=== PATIENT | female | born 1975 | race Caucasian/White ===

== ENCOUNTER 2016-07-21 19:29 | Emergency (ER) | payer OTHER | END 2016-07-21 21:46 | disposition home or self-care (01) | DX: M25.531 Pain in right wrist (principal); W01.0XXA Fall on same level from slipping, tripping and stumbling without subsequent striking against object, initial encounter; Z86.718 Personal history of other venous thrombosis and embolism; Z79.01 Long term (current) use of anticoagulants ==

== ENCOUNTER 2017-07-15 21:03 | Emergency (ER) | payer OTHER ==
--- NOTE | 2017-07-16 00:27 | ED Physician Documentation ---
PD HPI DYSPNEA - Stated complaint Stated Complaint: DIFFICULTY BREATHING - Chief complaint Chief Complaint: Resp - History obtained from History obtained from: Patient - History of Present Illness Timing - onset: How many days ago (4-5) Timing - duration: Days Timing - details: Gradual onset, Waxing and waning Pain level max: 0 Pain level now: 0 Improved by: Rest Worsened by: Exertion, Coughing Associated symptoms: Fever (Tmax 103), Cough, Wheezing. 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 - Present Medications Home Medications: Ambulatory Orders Medication Instructions Recorded Confirmed Albuterol Sulfate [Proventil Hfa 1 - 2 puffs INH Q4H PRN #1 inhaler 07/16/17 Inhaler] Benzonatate [Tessalon Perle] 100 mg PO Q6HR PRN #20 capsule 07/16/17 predniSONE [Prednisone] 40 mg PO DAILY 3 Days #6 tablet 07/16/17 - Allergies Allergies/Adverse Reactions: Allergies Allergy/AdvReac Type Severity Reaction Status Date / Time coconut Allergy Anaphylaxis Verified 07/21/16 19:36 codeine AdvReac Intermediate Nausea Verified 07/21/16 19:36 - Social History Does the pt smoke?: No Smoking Status: Never smoker Does the pt drink ETOH?: No Does the pt have substance abuse?: No - Immunizations Immunizations are current?: Yes - POLST Patient has POLST: No PD ED PE NORMAL - Vitals Vital signs reviewed: Yes - General General: Alert and oriented X 3, No acute distress, Well developed/nourished - HEENT HEENT: Moist mucous membranes - Neck Neck: Supple, no meningeal sign - Cardiac Cardiac: RRR, No murmur - Respiratory Respiratory: No respiratory distress - Abdomen Abdomen: Soft, Non tender PD ED PE EXPANDED - Respiratory Respiratory: Wheezing, Decreased breath sounds Results - Vitals Vitals: Oxygen O2 Source Room air - Rads (name of study) chest xray Radiology: Prelim report reviewed, See rad report PD MEDICAL DECISION MAKING - ED course Complexity details: reviewed results, re-evaluated patient, considered differential, d/w patient ED course: improved after duoneb followed by albuterol. also given prednisone in ED and rx for same Departure - Departure Disposition: 01 Home, Self Care Clinical Impression: Bronchitis with bronchospasm Condition: Good Instructions: ED Bronchitis Asthmatic Prescriptions: Benzonatate [Tessalon Perle] 100 mg PO Q6HR PRN #20 capsule PRN Reason: Cough Albuterol Sulfate [Proventil Hfa Inhaler] 1 - 2 puffs INH Q4H PRN #1 inhaler PRN Reason: Shortness Of Air/Wheezing predniSONE [Prednisone] 40 mg PO DAILY 3 Days #6 tablet Forms: Activity restrictions Discharge Date/Time: 07/16/17 04:17
[2017-07-16] MEDS ORDERED: IPRATROPIUM/ALBUTEROL 3 ML NEB INH STA (00:39)
--- NOTE | 2017-07-16 01:06 | XRAY Report ---
EXAM: CHEST RADIOGRAPHY EXAM DATE: 07/16/2017 01:00 AM. CLINICAL HISTORY: Dyspnea, cough. COMPARISON: None. TECHNIQUE: 2 views. FINDINGS: Lungs/Pleura: No alveolar consolidation or pleural effusion seen. Bronchial wall thickening. No pneum othorax. Mediastinum: Heart and mediastinal contours are unremarkable. Other: None. IMPRESSION: 1. No focal consolidation seen. 2. Bronchial wall thickening. This can be seen with bronchitis or reactive airways disease. [facility] Referring Provider Line: [phone] SITE ID: [id number]
--- NOTE | 2017-07-16 01:06 | XRAY Preliminary Report ---
Exam: XR CHEST 2 VIEW X-RAY IMPRESSION: 1. No focal consolidation seen. 2. Bronchial wall thickening. This can be seen with bronchitis or reactive airways disease. [facility] SITE ID: [id number]
[2017-07-16] MEDS ORDERED: ALBUTEROL NEB 2.5 MG/3 ML INH STA (03:33)
[2017-07-16] MEDS ORDERED: BENZONATATE 100 MG CAPSULE PO STA (03:34)
[2017-07-16] MEDS ORDERED: predniSONE 20 MG TABLET PO STA (03:55)
[2017-07-16 04:18] VITALS: BP 127/104
== END 2017-07-16 04:17 | disposition home or self-care (01) ==
LOC: ED 21:03
DX: J40 Bronchitis, not specified as acute or chronic (principal)
CPT/HCPCS: 71046; 94640; 99283; A9270; J7512; J7613; J7620

== ENCOUNTER 2017-07-18 19:58 | Emergency (ER) | payer OTHER ==
--- NOTE | 2017-07-18 21:00 | ED Physician Documentation ---
PD HPI DYSPNEA - Stated complaint Stated Complaint: DIFFICULTY BREATHING/COUGH - Chief complaint Chief Complaint: Resp - History obtained from History obtained from: Patient - History of Present Illness Timing - onset: How many days ago (7-8) Timing - details: Gradual onset, Waxing and waning Pain level now: 3 Recently seen: Emergency Dept - Additional information Additional information: T+R 3 days ago (from this ED by me) for similar symptoms, which, at that time, had been going on for 4-5 days. She returns due to ongoing dyspnea and cough. She was prescribed prednisone, albuterol MDI, and benzonatate. She then followed -up at [facility] and was to get rx for an antibiotic (does not know which one), a second inhaler (by her description of how she was instructed to use that one and the albuterol I had prescribed, it sounds like either ipratropium/albuterol or else atrovent alone), and at least one other medication (she says it is something to numb her throat; she denies sore throat to me, but says it constantly is irritated, triggering cough and keeping her from sleeping). Unfortunately, when she went to [place] supervisor her prescriptions, the pharmacy had closed early due to inclement weather, was not due to open until Friday, and thus the prescriptions were unable to be transferred to another pharmacy. 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 - Present Medications Home Medications: Ambulatory Orders Medication Instructions Recorded Confirmed Albuterol Sulfate [Proventil Hfa 1 - 2 puffs INH Q4H PRN #1 inhaler 07/16/17 Inhaler] Benzonatate [Tessalon Perle] 100 mg PO Q6HR PRN #20 capsule 07/16/17 predniSONE [Prednisone] 40 mg PO DAILY 3 Days #6 tablet 07/16/17 Azithromycin [Zithromax] 250 mg PO DAILY #4 tablet 07/18/17 Guaifenesin/Hydrocodone [Flowtuss 5 ml PO BID PRN #60 solution 07/18/17 2.5-200 mg/5 ml Soln] Ipratropium/Albuterol [Combivent 1 puffs IH Q6HR PRN #1 aer.w.adap 07/18/17 Respimat] - Allergies Allergies/Adverse Reactions: Allergies Allergy/AdvReac Type Severity Reaction Status Date / Time coconut Allergy Anaphylaxis Verified 07/21/16 19:36 codeine AdvReac Intermediate Nausea Verified 07/21/16 19:36 - Social History Does the pt smoke?: No Smoking Status: Never smoker Does the pt drink ETOH?: No Does the pt have substance abuse?: No - Immunizations Immunizations are current?: Yes - POLST Patient has POLST: No PD ED PE NORMAL - Vitals Vital signs reviewed: Yes - General General: Alert and oriented X 3, No acute distress, Well developed/nourished - HEENT HEENT: Ears normal, Moist mucous membranes, Pharynx benign - Neck Neck: Supple, no meningeal sign - Cardiac Cardiac: RRR, No murmur - Respiratory Respiratory: No respiratory distress - Abdomen Abdomen: Soft, Non tender - Derm Derm: Normal color, Warm and dry PD ED PE EXPANDED - Respiratory Respiratory: Wheezing (end-expiratory wheezing bilaterally but good air flow) Results - Vitals Vitals: Oxygen O2 Source Room air PD MEDICAL DECISION MAKING - ED course Complexity details: reviewed results, re-evaluated patient, considered differential, d/w patient ED course: After duoneb and xopenex in ED, patient's reevaluation of lungs (auscultation) reveals trace end-expiratory wheezing with good air flow. Given zithromax 500mg and rx, as well as rx for combivent, and rx for flowtuss (allergic to codeine). Departure - Departure Disposition: 01 Home, Self Care Clinical Impression: Bronchitis with bronchospasm Condition: Good Instructions: ED Upper Resp Infec Abx Tx Follow-Up: JAY AYALA DO [Primary Care Provider] - Prescriptions: Ipratropium/Albuterol [Combivent Respimat] 1 puffs IH Q6HR PRN #1 aer.w.adap PRN Reason: Dyspnea Azithromycin [Zithromax] 250 mg PO DAILY #4 tablet Guaifenesin/Hydrocodone [Flowtuss 2.5-200 mg/5 ml Soln] 5 ml PO BID PRN #60 solution PRN Reason: Cough Discharge Date/Time: 07/18/17 23:25
[2017-07-18] MEDS ORDERED: IPRATROPIUM/ALBUTEROL 3 ML NEB INH STA (21:19)
[2017-07-18] MEDS ORDERED: HYDROcod/ACETAM 5/325 MG TABLET PO STA ×2 (21:19→22:45)
[2017-07-18] MEDS ORDERED: LEVALBUTEROL 1.25 MG/3 ML NEB INH STA (22:45)
[2017-07-18] MEDS ORDERED: AZITHROMYCIN 250 MG TABLET PO STA (22:46)
[2017-07-18 22:54] VITALS: BP 149/106
== END 2017-07-18 23:25 | disposition home or self-care (01) ==
LOC: ED 19:58
DX: J20.9 Acute bronchitis, unspecified (principal)
CPT/HCPCS: 94640; 99283; 99284; A9270; J7620

== ENCOUNTER 2019-07-07 17:15 | Emergency (ER) | payer OTHER ==
[2019-07-07 17:52] LABS: BASOPHILS % (AUTO) 0.2 %; EOSINOPHILS % (AUTO) 0.4 %; LYMPHOCYTES # (AUTO) 1.4 10^3/uL (1.5-3.5); LYMPHOCYTES % (AUTO) 12.8 %; MEAN CORPUSCULAR HEMOGLOBIN 31.6 pg (27.0-31.0); MEAN CORPUSCULAR VOLUME 92.9 fL (81.0-99.0); MEAN PLATELET VOLUME 8.9 fL (7.9-10.8); MONOCYTES # (AUTO) 0.5 10^3/uL (0.0-1.0); MONOCYTES % (AUTO) 4.1 %; NEUTROPHILS # (AUTO) 9.2 10^3/uL (1.5-6.6); NEUTROPHILS % (AUTO) 82.1 %; PLT - PLATELET COUNT 304 10^3/uL (130-450); RED BLOOD COUNT 5.07 10^6/uL (4.20-5.40); RED CELL DISTRIBUTION WIDTH 13.2 % (12.0-15.0); WHITE BLOOD COUNT 11.2 x10^3/uL (4.8-10.8)
[2019-07-07 18:08] LABS: ALBUMIN 4.2 g/dL (3.2-5.5); ALBUMIN/GLOBULIN RATIO 1.2 (1.0-2.2); CREATININE 0.5 mg/dL (0.4-1.0); TOTAL PROTEIN 7.8 g/dL (6.7-8.2)
[2019-07-07] MEDS ORDERED: LOPERAMIDE 2 MG CAPSULE PO STA (18:58)
[2019-07-07] MEDS ORDERED: SODIUM CHLORIDE 0.9% 1,000 ML IV ONE (18:58)
[2019-07-07] MEDS ORDERED: KETOROLAC 30 MG/ML VIAL IVP STA (18:58)
[2019-07-07] MEDS ORDERED: ONDANSETRON 4 MG/2 ML VIAL IVP STA (18:58)
--- NOTE | 2019-07-07 18:59 | ED Physician Documentation ---
PD HPI ABD PAIN - Stated complaint Stated Complaint: FLU SYMPTOMS - Chief complaint Chief Complaint: Abd Pain - History obtained from History obtained from: Patient (Starting yesterday she is had diarrhea and a headache. The headache went away, now has more vomiting and the diarrhea continues today. No fevers. Mild abdominal pain. 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 - Present Medications Home Medications: Ambulatory Orders Medication Instructions Recorded Confirmed Albuterol Sulfate [Proventil Hfa 1 - 2 puffs INH Q4H PRN #1 inhaler 07/16/17 Inhaler] Benzonatate [Tessalon Perle] 100 mg PO Q6HR PRN #20 capsule 07/16/17 predniSONE [Prednisone] 40 mg PO DAILY 3 Days #6 tablet 07/16/17 Azithromycin [Zithromax] 250 mg PO DAILY #4 tablet 07/18/17 Guaifenesin/Hydrocodone [Flowtuss 5 ml PO BID PRN #60 solution 07/18/17 2.5-200 mg/5 ml Soln] Ipratropium/Albuterol [Combivent 1 puffs IH Q6HR PRN #1 aer.w.adap 07/18/17 Respimat] Dicyclomine [Bentyl] 20 mg PO QID PRN #15 capsule 07/07/19 Loperamide [Imodium] 2 mg PO QID PRN #10 capsule 07/07/19 Ondansetron Odt [Zofran] 4 mg TL Q6H PRN #10 tablet 07/07/19 - Allergies Allergies/Adverse Reactions: Allergies Allergy/AdvReac Type Severity Reaction Status Date / Time codeine AdvReac Intermediate Nausea Verified 07/07/19 17:27 - Social History Does the pt smoke?: No Smoking Status: Never smoker Does the pt drink ETOH?: No Does the pt have substance abuse?: No - Immunizations Immunizations are current?: Yes - POLST Patient has POLST: No PD ED PE NORMAL - Vitals Vital signs reviewed: Yes - General General: Alert and oriented X 3, No acute distress - HEENT HEENT: Pharynx benign - Cardiac Cardiac: RRR, No murmur - Respiratory Respiratory: No respiratory distress, Clear bilaterally - Abdomen Abdomen: Normal bowel sounds, Soft, Non tender - Back Back: No CVA TTP, No spinal TTP - Derm Derm: Normal color, Warm and dry - Extremities Extremities: No edema, No calf tenderness / cord - Neuro Neuro: Alert and oriented X 3, Normal speech Results - Vitals Vitals: Vital Signs - 24 hr 07/07/19 07/07/19 17:20 21:20 Temperature 36.5 C Heart Rate 93 77 Respiratory 17 14 Rate Blood Pressure 128/91 H 123/71 O2 Saturation 98 96 Oxygen O2 Source Room air - Labs Labs: Laboratory Tests 07/07/19 07/07/19 07/07/19 17:49 17:49 20:44 WBC 11.2 H RBC 5.07 Hgb 16.0 Hct 47.1 H MCV 92.9 MCH 31.6 H MCHC 34.0 RDW 13.2 Plt Count 304 MPV 8.9 Neut # (Auto) 9.2 H Lymph # (Auto) 1.4 L Sharp # (Auto) 0.5 Eos # (Auto) 0.0 Baso # (Auto) 0.0 Absolute Nucleated RBC 0.00 Nucleated RBC % 0.0 Sodium 138 Potassium 3.6 Chloride 102 Carbon Dioxide 24 Anion Gap 12.0 BUN 15 Creatinine 0.5 Estimated GFR (MDRD) 136 Glucose 98 Calcium 9.0 Total Bilirubin 1.0 AST 20 ALT 27 Alkaline Phosphatase 83 Total Protein 7.8 Albumin 4.2 Globulin 3.6 Albumin/Globulin Ratio 1.2 Lipase 18 L Urine Color YELLOW Urine Clarity CLEAR Urine pH 6.0 Ur Specific [place] >=1.030 H Urine Protein NEGATIVE Urine Glucose (UA) NEGATIVE Urine Ketones >=80 H Urine Occult Blood TRACE-INTA Urine Nitrite NEGATIVE Urine Bilirubin NEGATIVE Urine Urobilinogen 0.2 (NORMAL) Ur Leukocyte Esterase TRACE H Urine RBC 0-5 Urine WBC 0-3 Ur Squamous Epith Cells MANY Squamous H Urine Bacteria Few Urine Mucus Moderate Strands Ur Microscopic Review INDICATED Urine Culture Comments NOT INDICATED Urine HCG, Qual 07/07/19 20:44 WBC RBC Hgb Hct MCV MCH MCHC RDW Plt Count MPV Neut # (Auto) Lymph # (Auto) Sharp # (Auto) Eos # (Auto) Baso # (Auto) Absolute Nucleated RBC Nucleated RBC % Sodium Potassium Chloride Carbon Dioxide Anion Gap BUN Creatinine Estimated GFR (MDRD) Glucose Calcium Total Bilirubin AST ALT Alkaline Phosphatase Total Protein Albumin Globulin Albumin/Globulin Ratio Lipase Urine Color Urine Clarity Urine pH Ur Specific [place] >=1.030 H Urine Protein Urine Glucose (UA) Urine Ketones Urine Occult Blood Urine Nitrite Urine Bilirubin Urine Urobilinogen Ur Leukocyte Esterase Urine RBC Urine WBC Ur Squamous Epith Cells Urine Bacteria Urine Mucus Ur Microscopic Review Urine Culture Comments Urine HCG, Qual NEGATIVE PD MEDICAL DECISION MAKING - ED course ED course: 43-year-old woman with typical gastroenteritis. No abdominal tenderness. She was administered Zofran, Toradol, Imodium, and saline. On recheck prior to discharge she was nontender, feeling much better, passed an oral challenge. She was given appendicitis precautions out of an abundance of caution but this seems very unlikely at this juncture. Departure - Departure Disposition: 01 Home, Self Care Clinical Impression: Gastroenteritis Condition: Good Record reviewed to determine appropriate education?: Yes Instructions: ED Gastroenteritis Viral Prescriptions: Dicyclomine [Bentyl] 20 mg PO QID PRN #15 capsule PRN Reason: Abdominal Pain Loperamide [Imodium] 2 mg PO QID PRN #10 capsule PRN Reason: Diarrhea Ondansetron Odt [Zofran] 4 mg TL Q6H PRN #10 tablet PRN Reason: Nausea / Vomiting Comments: Return in 12 to 24 hours if not better, anytime for new or worsening symptoms or severe abdominal pain. Or fever. Discharge Date/Time: 07/07/19 21:26
[2019-07-07 20:53] LABS: GLUCOSE, URINE (UA) NEGATIVE (NEGATIVE); KETONES,URINE (UA) >=80 mg/dL (NEGATIVE); LEUKOCYTE ESTERASE, URINE TRACE (NEGATIVE); NITRITE,URINE NEGATIVE (NEGATIVE); OCCULT BLOOD,URINE TRACE-INTA (NEGATIVE); PROTEIN,URINE NEGATIVE (NEGATIVE); UROBILINOGEN,URINE 0.2 (NORMAL) E.U./dL (NORMAL)
[2019-07-07 20:56] LABS: BILIRUBIN,URINE NEGATIVE (NEGATIVE); CLARITY,URINE CLEAR (CLEAR); ICTOTEST,URINE NEGATIVE
[2019-07-07 20:57] LABS: HCG UR QUAL NEGATIVE
[2019-07-07 21:01] LABS: BACTERIA,URINE Few /HPF (None Seen); MUCUS,URINE Moderate Strands; RBC,URINE 0-5 /HPF (0-5); SQUAMOUS EPITHELIAL CELL,UR MANY Squamous (<= Few)
[2019-07-07] MEDS ORDERED: ONDANSETRON ODT 4 MG Prepack 2 TL STA (21:11)
[2019-07-07 21:20] VITALS: BP 123/71
[2019-07-08] MEDS ORDERED: ONDANSETRON 4 MG/2 ML VIAL ONE (02:15)
== END 2019-07-07 21:26 | disposition home or self-care (01) ==
LOC: ED 17:15
DX: K52.9 Noninfective gastroenteritis and colitis, unspecified (principal); Z90.49 Acquired absence of other specified parts of digestive tract
CPT/HCPCS: 36415; 80053; 81001; 81025; 83690; 85025; 96361; 96374; 99283; A9270; 81003; 87086

== ENCOUNTER 2019-07-08 01:43 | Observation (INO) | payer OTHER ==
--- NOTE | 2019-07-08 01:54 | ED Physician Documentation ---
History of Present Illness - Stated complaint Stated Complaint: ABD PX/SHOULDER PX - History obtained from History obtained from: Patient (the patient is a 43 y/o f who p/w abd pain. she was seen yesterday and had unremarkable labs and was provided prescriptions for imodium and bentyl however she was unable to get them filled and is now here with worsening crampy abd pain and vomiting and diarrhea. she has had a previous cholecystectomy.) Review of Systems Ten Systems: 10 systems reviewed and negative Constitutional: reports: Reviewed and negative Eyes: reports: Reviewed and negative Ears: reports: Reviewed and negative Nose: reports: Reviewed and negative Throat: reports: Reviewed and negative Cardiac: reports: Reviewed and negative Respiratory: reports: Reviewed and negative GI: reports: Abdominal Pain, Nausea, Vomiting, Diarrhea : reports: Reviewed and negative Skin: reports: Reviewed and negative Musculoskeletal: reports: Reviewed and negative Neurologic: reports: Reviewed and negative Psychiatric: reports: Reviewed and negative Endocrine: reports: Reviewed and negative Immunocompromised: reports: Reviewed and negative PD PAST MEDICAL HISTORY - Past Medical History GI: Cholelithiasis - Past Surgical History Past Surgical History: Yes General: 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, 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, 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 - Present Medications Home Medications: Ambulatory Orders Medication Instructions Recorded Confirmed Albuterol Sulfate [Proventil Hfa 1 - 2 puffs INH Q4H PRN #1 inhaler 07/16/17 Inhaler] Benzonatate [Tessalon Perle] 100 mg PO Q6HR PRN #20 capsule 07/16/17 predniSONE [Prednisone] 40 mg PO DAILY 3 Days #6 tablet 07/16/17 Azithromycin [Zithromax] 250 mg PO DAILY #4 tablet 07/18/17 Guaifenesin/Hydrocodone [Flowtuss 5 ml PO BID PRN #60 solution 07/18/17 2.5-200 mg/5 ml Soln] Ipratropium/Albuterol [Combivent 1 puffs IH Q6HR PRN #1 aer.w.adap 07/18/17 Respimat] Dicyclomine [Bentyl] 20 mg PO QID PRN #15 capsule 07/07/19 Loperamide [Imodium] 2 mg PO QID PRN #10 capsule 07/07/19 Ondansetron Odt [Zofran] 4 mg TL Q6H PRN #10 tablet 07/07/19 - Allergies Allergies/Adverse Reactions: Allergies Allergy/AdvReac Type Severity Reaction Status Date / Time codeine AdvReac Intermediate Nausea Verified 07/07/19 17:27 - Social History Does the pt smoke?: No Smoking Status: Never smoker Does the pt drink ETOH?: No Does the pt have substance abuse?: No - Immunizations Immunizations are current?: Yes - POLST Patient has POLST: No PD ED PE NORMAL - Vitals Vital signs reviewed: Yes - General General: Alert and oriented X 3, No acute distress, Well developed/nourished - HEENT HEENT: Atraumatic, PERRL, EOMI - Neck Neck: Supple, no meningeal sign, No JVD - Cardiac Cardiac: RRR, No murmur, Strong equal pulses - Respiratory Respiratory: No respiratory distress, Clear bilaterally - Abdomen Abdomen: Other (abd is diffusely tender to palpation, there is ttp in the RLQ, there is no midline abdominal pulsatile mass, no HSM, no CVA tenderness. 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, No motor deficit, No sensory deficit, Normal speech - Psych Psych: Normal mood, Normal affect Results - Vitals Vitals: Vital Signs - 24 hr 07/08/19 01:54 Temperature 37.0 C Heart Rate 95 Respiratory 16 Rate Blood Pressure 145/87 H O2 Saturation 100 Oxygen O2 Source Room air - EKG (time done) 02:15 Rate: Rate (enter#) (78), Other (no stemi) Rhythm: NSR [place]: Normal Intervals: Normal TN, QRS normal QRS: Normal Ischemia: Non specific changes - Labs Labs: Laboratory Tests 07/08/19 07/08/19 07/08/19 02:40 02:40 02:40 WBC 8.8 RBC 4.89 Hgb 15.1 Hct 45.0 MCV 92.0 MCH 30.9 MCHC 33.6 RDW 13.2 Plt Count 264 MPV 9.0 Neut # (Auto) 7.1 H Lymph # (Auto) 1.1 L [place] # (Auto) 0.5 Eos # (Auto) 0.1 Baso # (Auto) 0.0 Absolute Nucleated RBC 0.00 Nucleated RBC % 0.0 PT 14.9 H INR 1.3 H APTT 28.9 Sodium 137 Potassium 3.3 L Chloride 102 Carbon Dioxide 21 Anion Gap 14.0 H BUN 16 Creatinine 0.4 Estimated GFR (MDRD) 176 Glucose 97 Lactic Acid Calcium 8.5 Total Bilirubin 2.7 H AST 140 H ALT 82 H Alkaline Phosphatase 130 H CK-MB (CK-2) Troponin I High Sens Total Protein 7.0 Albumin 3.8 Globulin 3.2 Albumin/Globulin Ratio 1.2 Lipase 24 Urine Color Urine Clarity Urine pH Ur Specific [place] Urine Protein Urine Glucose (UA) Urine Ketones Urine Occult Blood Urine Nitrite Urine Bilirubin Urine Urobilinogen Ur Leukocyte Esterase Urine RBC Urine WBC Ur Squamous Epith Cells Urine Bacteria Urine Mucus Ur Microscopic Review Urine Culture Comments Urine HCG, Qual 07/08/19 07/08/19 07/08/19 02:40 02:40 02:40 WBC RBC Hgb Hct MCV MCH MCHC RDW Plt Count MPV Neut # (Auto) Lymph # (Auto) Major # (Auto) Eos # (Auto) Baso # (Auto) Absolute Nucleated RBC Nucleated RBC % PT INR APTT Sodium Potassium Chloride Carbon Dioxide Anion Gap BUN Creatinine Estimated GFR (MDRD) Glucose Lactic Acid 0.8 Calcium Total Bilirubin AST ALT Alkaline Phosphatase CK-MB (CK-2) 1.1 Troponin I High Sens 2.4 Total Protein Albumin Globulin Albumin/Globulin Ratio Lipase Urine Color Urine Clarity Urine pH Ur Specific [place] Urine Protein Urine Glucose (UA) Urine Ketones Urine Occult Blood Urine Nitrite Urine Bilirubin Urine Urobilinogen Ur Leukocyte Esterase Urine RBC Urine WBC Ur Squamous Epith Cells Urine Bacteria Urine Mucus Ur Microscopic Review Urine Culture Comments Urine HCG, Qual 07/08/19 02:40 WBC RBC Hgb Hct MCV MCH MCHC RDW Plt Count MPV Neut # (Auto) Lymph # (Auto) Major # (Auto) Eos # (Auto) Baso # (Auto) Absolute Nucleated RBC Nucleated RBC % PT INR APTT Sodium Potassium Chloride Carbon Dioxide Anion Gap BUN Creatinine Estimated GFR (MDRD) Glucose Lactic Acid Calcium Total Bilirubin AST ALT Alkaline Phosphatase CK-MB (CK-2) Troponin I High Sens Total Protein Albumin Globulin Albumin/Globulin Ratio Lipase Urine Color YELLOW Urine Clarity CLEAR Urine pH 6.0 Ur Specific [place] >=1.030 H Urine Protein TRACE Urine Glucose (UA) NEGATIVE Urine Ketones >=80 H Urine Occult Blood MODERATE H Urine Nitrite NEGATIVE Urine Bilirubin NEGATIVE Urine Urobilinogen 4 H Ur Leukocyte Esterase NEGATIVE Urine RBC 6-10 H Urine WBC 0-3 Ur Squamous Epith Cells MOD Squamous H Urine Bacteria Rare Urine Mucus Moderate Strands Ur Microscopic Review INDICATED Urine Culture Comments NOT INDICATED Urine HCG, Qual NEGATIVE PD MEDICAL DECISION MAKING - ED course Complexity details: other (patient seen yesterday. presents with worsening abd pain and vomiting. ) - Consults Consults: Consulted (name), Discussed case with (04:23 hospitalist. will accept for observation.) Departure - Departure Disposition: [facility] DC/Xfer Clinical Impression: Transaminitis Abdominal pain Qualifiers: Abdominal location: unspecified location Qualified Code(s): R10.9 - Unspecified abdominal pain Vomiting Qualifiers: Vomiting type: unspecified Vomiting Intractability: intractable Nausea presence: with nausea Qualified Code(s): R11.2 - Nausea with vomiting, unspecified Condition: Fair
[2019-07-08] MEDS ORDERED: ONDANSETRON 4 MG/2 ML VIAL IVP STA (02:09)
[2019-07-08] MEDS ORDERED: SODIUM CHLORIDE 0.9% 1,000 ML IV ONE (02:09)
[2019-07-08] MEDS ORDERED: fentaNYL 100 MCG/2 ML VIAL IVP STA (02:10)
[2019-07-08] MEDS ORDERED: DICYCLOMINE 10 MG CAPSULE PO STA (02:10)
[2019-07-08] MEDS ORDERED: IOVERSOL 320 100 ML VIAL IVP ONE ×2 (02:45→03:15)
--- NOTE | 2019-07-08 02:45 | XRAY Report ---
Reason: chest pain Procedure Date: 07/08/2019 Accession Number: [id number] / [id number] Procedure: XR - Chest 1 View X-Ray CPT Code: 69052 Final Report FULL RESULT: EXAM: CHEST RADIOGRAPHY EXAM DATE: 07/08/2019 02:26 AM CLINICAL HISTORY: Chest pain. COMPARISON: CHEST 2 VIEW 07/16/2017 12:47 AM. TECHNIQUE: 1 view. FINDINGS: Lungs/Pleura: Clear lungs. No pleural effusion. No pneumothorax. Mediastinum: Within exam limitations, the cardiomediastinal contour is normal. Other: None. IMPRESSION: Normal single view chest radiography. [facility]
[2019-07-08 02:51] LABS: BASOPHILS % (AUTO) 0.2 %; EOSINOPHILS # (AUTO) 0.1 10^3/uL (0.0-0.7); EOSINOPHILS % (AUTO) 0.6 %; HGB - HEMOGLOBIN 15.1 g/dL (12.0-16.0); LYMPHOCYTES # (AUTO) 1.1 10^3/uL (1.5-3.5); LYMPHOCYTES % (AUTO) 12.7 %; MEAN CORPUSCULAR HEMOGLOBIN 30.9 pg (27.0-31.0); MEAN CORPUSCULAR HGB CONC 33.6 g/dL (32.0-36.0); MONOCYTES # (AUTO) 0.5 10^3/uL (0.0-1.0); MONOCYTES % (AUTO) 5.5 %; NEUTROPHILS # (AUTO) 7.1 10^3/uL (1.5-6.6); NEUTROPHILS % (AUTO) 80.5 %; PLT - PLATELET COUNT 264 10^3/uL (130-450); RED BLOOD COUNT 4.89 10^6/uL (4.20-5.40); RED CELL DISTRIBUTION WIDTH 13.2 % (12.0-15.0); WHITE BLOOD COUNT 8.8 x10^3/uL (4.8-10.8)
[2019-07-08 02:54] LABS: GLUCOSE, URINE (UA) NEGATIVE (NEGATIVE); INR 1.3 (0.8-1.2); KETONES,URINE (UA) >=80 mg/dL (NEGATIVE); LEUKOCYTE ESTERASE, URINE NEGATIVE (NEGATIVE); NITRITE,URINE NEGATIVE (NEGATIVE); OCCULT BLOOD,URINE MODERATE (NEGATIVE); PROTEIN,URINE TRACE mg/dL (NEGATIVE); PT - PROTHROMBIN TIME 14.9 secs (9.9-12.6); UROBILINOGEN,URINE 4 E.U./dL (NORMAL)
[2019-07-08 02:55] LABS: CLARITY,URINE CLEAR (CLEAR)
[2019-07-08 02:58] LABS: BILIRUBIN,URINE NEGATIVE (NEGATIVE); HCG UR QUAL NEGATIVE
[2019-07-08 03:03] LABS: BACTERIA,URINE Rare /HPF (None Seen); MUCUS,URINE Moderate Strands; SQUAMOUS EPITHELIAL CELL,UR MOD Squamous (<= Few)
[2019-07-08 03:07] LABS: PARTIAL THROMBOPLASTIN TIME 28.9 secs (24.9-33.3)
[2019-07-08 03:12] LABS: ALBUMIN 3.8 g/dL (3.2-5.5); ALBUMIN/GLOBULIN RATIO 1.2 (1.0-2.2); BILIRUBIN,TOTAL 2.7 mg/dL (0.2-1.0); CALCIUM 8.5 mg/dL (8.5-10.3); CREATININE 0.4 mg/dL (0.4-1.0)
--- NOTE | 2019-07-08 03:48 | CT Report ---
Reason: severe abd pain Procedure Date: 07/08/2019 Accession Number: [id number] / [id number] Procedure: CT - Abdomen/Pelvis W CPT Code: Final Report FULL RESULT: EXAM: CT ABDOMEN AND PELVIS EXAM DATE:07/08/2019 03:08 AM CLINICAL HISTORY: Severe abd pain. COMPARISONS: ABDOMEN/PELVIS W/ 02/12/2016 8:32 PM ABD/PEL W/WO 02/13/2016 2:09 PM. TECHNIQUE: Routine helical CT imaging was performed through the abdomen and pelvis with 100 mL OPTIRAY 320 IV contrast. Oral contrast: No. Reconstructions: Coronal and sagittal. In accordance with CT protocol optimization, one or more of the following dose reduction techniques were utilized for this exam: automated exposure control, adjustment of mA and/or KV based on patient size, or use of iterative reconstructive technique. FINDINGS: Lung Bases: Clear lung bases. No pleural effusion. Liver: Unremarkable. Gallbladder/Bile Ducts: Mild diffuse bile duct dilatation likely reflects the post-cholecystectomy state. Spleen: Unremarkable. Pancreas: Unremarkable. Adrenal Glands: Unremarkable. Kidneys: 3 mm calcification in the inferior pole of the left kidney. Otherwise, unremarkable. No hydronephrosis. 1.5 cm cyst at the upper pole of the left kidney. Peritoneal Cavity/Bowel: 3.2 cm fat-containing ventral hernia. Diverticula involve the sigmoid colon. The bowel is normal in caliber and contour. No free fluid, free air or lymphadenopathy. The appendix is normal. Pelvic Organs: Unremarkable. The bladder and visualized pelvic organs appear normal. IUD in standard position. The right ovarian vein is unremarkable. Vasculature: Unremarkable. Bones: Unremarkable. Other: Skin thickening in the fold of the pannus. IMPRESSION: Skin thickening in the fold of the pannus may reflect soft tissue cellulitis. No drainable abscess. Sigmoid diverticulosis. Nephrolithiasis. [facility]
[2019-07-08] MEDS ORDERED: MORPHINE 2 MG/ML CARPUJECT IVP PRN ×2 (04:25→05:16)
--- NOTE | 2019-07-08 04:42 | HISTORY & PHYSICAL EXAMINATION ---
Chief Complaint - Chief Complaint Chief Complaint: intractable nausea and vomiting, abdominal pain History of Present Illness - Admitted From Admitted From:: [facility] - History Obtained From Records Reviewed: yes History obtained from: patient - History of Present Illness HPI Comment/Other: Patient is a 43 y/o female who presented to the ED with abdominal pain,nausea and vomiting which started yesterday. She presented to the ED around 5:30pm, was treated and discharged home however her pain persisted so she returned to the ED early this morning again. Repeat labs showed slight elevation in her liver enzymes. As a result of intractable pain, nausea and vomiting, she was presented for observation. 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 She denies chest pain, reports some mild dyspnea. She denies fever but reports chills. History - Past Medical History Endocrine/Autoimmune: reports: Other GI: reports: Cholelithiasis MRSA Hx?: No - Past Surgical History General: reports: 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, Bowel surgery /SACK CLEANING HAND: reports: section, 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 - Family & Social History Family History: Mother: Diabetes, Type 2, Hypertension, Father: Diabetes, Type 2, Hypertension Living arrangement: At home Living Situation: With family Social History Notes: She rarely drinks. She denies tobacco or illicit drug use - POLST Patient has POLST: No POLST Status: Full Code Meds/Allgy - Home Medications Home Medications: Ambulatory Orders Medication Instructions Recorded Confirmed Albuterol Sulfate [Proventil Hfa 1 - 2 puffs INH Q4H PRN #1 inhaler 07/16/17 Inhaler] Benzonatate [Tessalon Perle] 100 mg PO Q6HR PRN #20 capsule 07/16/17 predniSONE [Prednisone] 40 mg PO DAILY 3 Days #6 tablet 07/16/17 Azithromycin [Zithromax] 250 mg PO DAILY #4 tablet 07/18/17 Guaifenesin/Hydrocodone [Flowtuss 5 ml PO BID PRN #60 solution 07/18/17 2.5-200 mg/5 ml Soln] Ipratropium/Albuterol [Combivent 1 puffs IH Q6HR PRN #1 aer.w.adap 07/18/17 Respimat] Dicyclomine [Bentyl] 20 mg PO QID PRN #15 capsule 07/07/19 Loperamide [Imodium] 2 mg PO QID PRN #10 capsule 07/07/19 Ondansetron Odt [Zofran] 4 mg TL Q6H PRN #10 tablet 07/07/19 - Allergies Allergies/Adverse Reactions: Allergies Allergy/AdvReac Type Severity Reaction Status Date / Time codeine AdvReac Intermediate Nausea Verified 07/07/19 17:27 Review of Systems - Constitutional Constitutional: reports: Poor appetite. denies: Fatigue, Fever, Chills, Malaise - Eyes Eyes: denies: Pain, Vision loss - Ears, Nose & Throat Ears, Nose & Throat: denies: Tinnitus, Sore throat - Respiratory Respiratory: denies: Cough, Sputum production, Wheezing, Snoring - Gastrointestinal Gastrointestinal: reports: Abdominal pain, Diarrhea, Nausea, Vomiting. denies: Abdominal distention, Coffee grounds emesis, Reflux/heartburn - Genitourinary Genitourinary: denies: Dysuria, Frequency, Urgency, Hematuria, Incontinence - Musculoskeletal Musculoskeletal: denies: Muscle pain, Back pain - Integumentary Integumentary: denies: Rash, Pruritis, Lesions, Dryness - Neurological Neurological: denies: General weakness, Focal weakness, Headache, Dizziness - Psychiatric Psychiatric: denies: Depression, Anxiety - Endocrine Endocrine: denies: Polyuria, Polydypsia - Hematologic/Lymphatic Hematologic/Lymphatic: denies: Anemia, Bruising, Petechiae Prior Level of Functionality: She is independent of activities of daily living Exam - Vital Signs Vital Signs: Vital Signs x48h Temp Pulse Resp BP Pulse Ox 07/08/19 04:26 82 16 113/61 100 07/08/19 01:54 37.0 C 95 16 145/87 H 100 - Physical Exam General Appearance: positive: Alert, Mild distress, Moderate distress Eyes Bilateral: positive: Normal inspection, PERRL, EOMI ENT: positive: ENT inspection nml, No signs of dehydration Neck: positive: No JVD, Trachea midline Respiratory: positive: Chest non-tender, No respiratory distress, Breath sounds nml. negative: Wheezes, Rales, Rhonchi Cardiovascular: positive: Regular rate & rhythm, No murmur Abdomen: positive: Non-tender, No organomegaly, Nml bowel sounds, No distention. negative: Guarding, Rebound Back: positive: Nml inspection Skin: positive: Color nml, No rash, Warm, Dry. negative: Diaphoresis Extremities: positive: Non-tender, Full ROM, Nml appearance, No pedal edema Neurologic/Psychiatric: positive: Oriented x3, Mood/affect nml Conclusion/Plan - Problem List (1) Gastroenteritis Conclusion/Plan: Likely viral Supportive therapy/ Symptomatic relief Clear liquids. IV hydration Antiemetic. Zofran 4mg IV q4hrs prn Pain management Trend liver enzymes (2) Intractable nausea and vomiting Conclusion/Plan: Likely 2/2 viral gastroenteritis. Zofran IV prn - Lab Results Fish Bones: 07/08/19 02:40 07/08/19 02:40 Core Measures - Anticipated LOS I expect patient to be DC'd or transferred within 96 hours.: Yes - DVT/VTE - Prophylaxis VTE/DVT Device ordered at admit?: Yes VTE/DVT Prophylaxis med ordered at admit?: Yes
[2019-07-08 05:11] LABS: BASOPHILS % (AUTO) 0.3 %; EOSINOPHILS % (AUTO) 0.3 %; HGB - HEMOGLOBIN 13.7 g/dL (12.0-16.0); LYMPHOCYTES % (AUTO) 12.4 %; MEAN CORPUSCULAR HEMOGLOBIN 31.5 pg (27.0-31.0); MEAN CORPUSCULAR HGB CONC 32.2 g/dL (32.0-36.0); MEAN CORPUSCULAR VOLUME 97.9 fL (81.0-99.0); MONOCYTES # (AUTO) 0.5 10^3/uL (0.0-1.0); MONOCYTES % (AUTO) 6.5 %; NEUTROPHILS # (AUTO) 6.2 10^3/uL (1.5-6.6); PLT - PLATELET COUNT 226 10^3/uL (130-450); RED BLOOD COUNT 4.35 10^6/uL (4.20-5.40); RED CELL DISTRIBUTION WIDTH 13.3 % (12.0-15.0); WHITE BLOOD COUNT 7.7 x10^3/uL (4.8-10.8)
[2019-07-08] MEDS: SODIUM CHLORIDE 0.9% 1,000 ML IV SCH ×2 (05:25→13:28)
[2019-07-08] MEDS: SODIUM CHLORIDE FLUSH 0.9% 10 ML SYRINGE IVP PRN ×3 (05:25→18:59)
[2019-07-08] MEDS: POTASSIUM CHLOR 10 MEQ/100 ML 10 MEQ/100 ML BAG IV SCH ×4 (05:39→11:08)
[2019-07-08] MEDS: oxyCODONE 5 MG TABLET PO PRN ×2 (05:48→14:10)
[2019-07-08] MEDS: ONDANSETRON 4 MG/2 ML VIAL IVP PRN ×2 (05:48→17:03)
[2019-07-08] MEDS ORDERED: PANTOPRAZOLE 40 MG TABLET PO SCH (07:00)
[2019-07-08] MEDS ORDERED: POTASSIUM CHLORIDE 20 MEQ TABLET PO SCH (07:30)
[2019-07-08] MEDS ORDERED: IPRATROPIUM/ALBUTEROL 3 ML NEB INH PRN (07:35)
[2019-07-08] MEDS ORDERED: ALBUTEROL NEB 2.5 MG/3 ML INH PRN (07:35)
[2019-07-08] MEDS: SODIUM CHLORIDE FLUSH 0.9% 10 ML SYRINGE IVP SCH ×2 (08:25→15:55)
[2019-07-08] MEDS ORDERED: ENOXAPARIN 40 MG/0.4 ML SYRINGE SUBQ SCH (09:00)
[2019-07-08] MEDS ORDERED: ACETAMINOPHEN 325 MG TABLET PO PRN (09:18)
--- NOTE | 2019-07-08 10:46 | Ultrasound Report ---
Reason: elevated liver enzyme Procedure Date: 07/08/2019 Accession Number: [id number] / [id number] Procedure: US - Abdomen Limited CPT Code: Final Report FULL RESULT: EXAM: ABDOMEN ULTRASOUND LIMITED, RUQ EXAM DATE: 07/08/2019 09:06 AM. CLINICAL HISTORY: Elevated liver enzyme. COMPARISON: ABDOMEN/PELVIS W/ 07/08/2019 3:02 AM. TECHNIQUE: Real-time scanning was performed with static images obtained. FINDINGS: Liver: Normal in size, 13.2 cm. Liver echogenicity of her normal. Acoustic penetration within normal limits, without radha evidence of steatosis. Main portal vein flow: Hepatopetal. Gallbladder: Surgically absent. Biliary System: CBD measures 7.8 mm. No intrahepatic or extrahepatic ductal dilatation. Distal common bile duct obscured by bowel gas. Other: Right kidney normal in appearance and size, 12.4 cm. IMPRESSION: No findings are identified to explain elevated liver function tests. RADIA
--- NOTE | 2019-07-08 11:08 | PHARMACY PROGRESS NOTE ---
- Best Possible Medication History Admit Date and Time: 07/08/19 0425 Processed by: Pharmacy Medication History completed: Yes Patient Interview: Completed Secondary Source(s): Physician records, Pharmacy records, Insurance records On admission patient had numerous PRN medications that were not current. Of note pertaining to current admission for abdominal pain: ondansetron and dicyclomine As the person ultimately responsible for medication therapy, providers are able to order a medication from an existing home medication list in [facility] via the "Reconcile Routine" prior to Confirmation of that medication by instructional support services director. Such practice is discouraged except when the physician, in their clinical judgment, deems that a medical need exists for a medication without regard to previous use.
[2019-07-08] MEDS ORDERED: guaiFENesin 600 MG TABLET PO SCH (14:00)
[2019-07-08 14:07] LABS: AMPHETAMINE SCREEN,URINE NEGATIVE (NEGATIVE); BENZODIAZEPINES SCREEN, URINE NEGATIVE (NEGATIVE); COCAINE SCREEN URINE NEGATIVE (NEGATIVE); METHADONE SCREEN, URINE NEGATIVE (NEGATIVE); METHAMPHETAMINES SCREEN, URINE NEGATIVE (NEGATIVE); MUDS CUTOFF CONCENTRATIONS CUTOFF CONC BELOW:; OPIATE SCREEN, URINE NEGATIVE (NEGATIVE); OXYCODONE SCREEN, URINE POSITIVE (NEGATIVE); PROPOXYPHENE SCREEN, URINE NEGATIVE (NEGATIVE); TRICYCLIC ANTIDEPRESSANT,URINE NEGATIVE (NEGATIVE)
[2019-07-08 14:55] LABS: ALBUMIN 3.3 g/dL (3.2-5.5); ALBUMIN/GLOBULIN RATIO 1.2 (1.0-2.2); BILIRUBIN,TOTAL 1.8 mg/dL (0.2-1.0); CREATININE 0.4 mg/dL (0.4-1.0)
[2019-07-08] MEDS: DICYCLOMINE 10 MG CAPSULE PO PRN ×2 (15:54→19:07)
--- NOTE | 2019-07-08 16:27 | Discharge Plan ---
Discharge Plan Problem Reviewed?: Yes Disposition: Home, Self Care Condition: Stable Prescriptions: Dicyclomine [Bentyl] 10 mg PO QID PRN #10 capsule PRN Reason: Abdominal Pain Diet: Regular Activity Restrictions: Activity as Tolerated Shower Restrictions: No (fall precaution) Instruction Topics: Dicyclomine tablets or capsules, Ondansetron tablets Health Concerns: abdominal cramp Plan of Treatment: CT of abdomen and US of abdomen reveals unremarkable. Bentyl is prescribed for your symptom control. Care Goals: improvement of your medical conditions Assessment: discussed with you about the care plan, you understood. Additional Instructions or Follow Up instructions: You may followup your PCP in one to two weeks, may followup die baker as out-pt as needed. Should your symptoms return or worsen, you may present ER or call 911 for help. No Smoking: If you smoke, Please STOP! Call for help. Follow-up with: JAY AYALA DO [Primary Care Provider] -
--- NOTE | 2019-07-08 18:01 | DISCHARGE SUMMARY ---
Discharge Summary Admit Date: 07/08/19 Discharge Date: 07/08/19 Discharging Provider: Preston Irene Primary Care Provider: Ewa Yost Condition at Discharge: Stable Discharge Disposition: 01 Home, Self Care Discharge Facility Name: home - DIAGNOSES Admission Diagnoses: (1) Gastroenteritis (2) Intractable nausea and vomiting Discharge Diagnoses with Status of Each Condition: 1) Gastroenteritis resolved/stable. pt tolerate regular diet, controlled nausea, no vomiting. pt report she has chronic mild abdominal cramp. pt is prescribed Bentyl. CT of abdomen and pelvis reveals unremarkable. I checked pt's skin on abdomen, Pt has no soft tissue cellulitis as CT suggested. (2) Intractable nausea and vomiting resolved/stable. pt report she has mild chronic nausea feeling but without vomiting. advise pt followup harvesting contractor as needed as out-pt setting. pt is prescribed Zofran for d/c PRN. pt tolerate regular diet (3) elevated liver enzyme pt's liver enzyme was normal about 8 hours ago at the ER in her first admission on 07/07/2019 afternoon. her liver enzyme became slight elevated. CT of abdomen and US of abdomen were unremarkable. Serial liver enzyme test reveals reduced enzyme activity. advise pt followup PCP - HPI History of Present Illness: refer from Dr. Mtz's HPI on 07/08/2019 Patient is a 43 y/o female who presented to the ED with abdominal pain,nausea and vomiting which started yesterday. She presented to the ED around 5:30pm, was treated and discharged home however her pain persisted so she returned to the ED early this morning again. Repeat labs showed slight elevation in her liver enzymes. As a result of intractable pain, nausea and vomiting, she was presented for observation. 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 She denies chest pain, reports some mild dyspnea. She denies fever but reports chills. - HOSPITAL COURSE Hospital Course: pt was admitted for intractable nausea and vomiting. pt was treated in hospital as: pt has bowel rest, and IVF, symptoms control. after treatment, pt tolerate regular diet, and her symptoms were controlled. pt's CT and US of abdomen/pelvis were unremarkable. The detail hospital course is as the below. 1) Gastroenteritis resolved/stable. pt tolerate regular diet, controlled nausea, no vomiting. she has chronic mild abdominal cramp. pt is prescribed Bentyl. CT of abdomen and pelvis reveals unremarkable. I checked pt's skin on abdomen, Pt has no soft tissue cellulitis as CT suggested. (2) Intractable nausea and vomiting resolved/stable. pt report she has mild chronic nausea feeling but without vomiting. advised pt followup harvesting contractor as needed as out-pt setting. pt is prescribed Zofran for d/c PRN. pt tolerate regular diet (3) elevated liver enzyme pt's liver enzyme was normal about 8 hours ago at the ER in her first admission on 07/07/2019 afternoon. her liver enzyme became slight elevated. CT of abdomen and US of abdomen were unremarkable. Serial liver enzyme test reveals reduced enzyme activity. advised pt followup PCP and harvesting contractor closely monitor. - ALLERGIES Allergies/Adverse Reactions: Allergies Allergy/AdvReac Type Severity Reaction Status Date / Time codeine AdvReac Intermediate Nausea Verified 07/07/19 17:27 - MEDICATIONS Home Medications: Ambulatory Orders Medication Instructions Recorded Confirmed Albuterol Sulfate [Proair Hfa 2 puffs INH Q4H PRN 07/08/19 07/08/19 Inhaler] Dicyclomine [Bentyl] 10 mg PO QID PRN #10 capsule 07/08/19 Meloxicam 15 mg PO DAILY 07/08/19 07/08/19 Ondansetron HCl [Zofran] 4 mg PO Q6H PRN #10 tablet 07/08/19 - PHYSICAL EXAM AT DISCHARGE General Appearance: positive: No acute distress, Alert. negative: Lethargic Eyes Bilateral: positive: Normal inspection, PERRL, EOMI, No lid inflammation ENT: positive: ENT inspection nml, Pharynx nml, No signs of dehydration. negative: Purulent nasal drainage, Oral lesions Neck: positive: Nml inspection, Thyroid nml, No JVD, Trachea midline. negative: Thyromegaly, Lymphadenopathy (R), Lymphadenopathy (L), Stiff neck, Tracheal deviation Respiratory: positive: Chest non-tender, No respiratory distress, Breath sounds nml. negative: Wheezes, Rales, Rhonchi Cardiovascular: positive: Regular rate & rhythm, No murmur, No gallop. negative: Irregularly irregular, Extrasystoles, Tachycardia, Bradycardia, JVD present, Systolic murmur, Diastolic murmur Peripheral Pulses: positive: 2+ Abdomen: positive: Non-tender, No organomegaly, Nml bowel sounds, No distention. negative: Tenderness, Guarding, Rebound Back: positive: Nml inspection. negative: CVA tenderness (R), CVA tenderness (L) Skin: positive: Color nml, No rash, Warm, Dry. negative: Cyanosis, Diaphoresis, Pallor Extremities: positive: Non-tender, Full ROM, Nml appearance. negative: Calf tenderness, Hao's sign/cords Neurologic/Psychiatric: positive: Oriented x3, Motor nml, Sensation nml, Mo od/affect nml. negative: Weakness, Sensory loss, Facial droop, Slurred/abnml speech, Depressed mood/affect - LABS Result Diagrams: 07/08/19 05:05 07/08/19 14:20 - FOLLOW UP Follow Up: CT of abdomen and US of abdomen reveals unremarkable. Bentyl is prescribed for your symptom control. You may followup your PCP in one to two weeks, may followup harvesting contractor as out-pt. Should your symptoms return or worsen, you may present ER or call 911 for help. - TIME SPENT Time Spent in Discharge (Minutes): 40
[2019-07-08] MEDS ORDERED: PROCHLORPERAZINE 10 MG/2 ML VIAL IVP PRN (18:43)
[2019-07-08 19:33] VITALS: BP 131/71
== END 2019-07-08 19:30 | disposition home or self-care (01) ==
LOC: ED 01:43 → MS2 04:25
PROVIDERS: ADMIT Internal Medicine; ATTEND Nurse Practitioner Gerontology
DX: K52.9 Noninfective gastroenteritis and colitis, unspecified (principal); R10.9 Unspecified abdominal pain; G89.29 Other chronic pain; R74.8 Abnormal levels of other serum enzymes; Z79.51 Long term (current) use of inhaled steroids; Z79.52 Long term (current) use of systemic steroids; Z90.49 Acquired absence of other specified parts of digestive tract
CPT/HCPCS: 36415; 71045; 74177; 76705; 80053; 80320; 81001; 81025; 82553; 83605; 83690; 84484; 85025; 85610; 85730; 93005; 96361; 96365; 96366; 96372; 96375; 96376; 99285; A9270; G0378; J1650; Q9967; 80306; 81003; 87086

== ENCOUNTER 2020-02-23 19:04 | Emergency (ER) | payer OTHER ==
--- NOTE | 2020-02-23 19:13 | ED Physician Documentation ---
PD HPI FEMALE - Stated complaint Stated Complaint: FEMALE - Chief complaint Chief Complaint: UTI - History obtained from History obtained from: Patient - History of Present Illness Timing - onset: How many weeks ago (1) Timing - details: Gradual onset, Still present Pain level max: 0 Associated symptoms: Dysuria, Urinary frequency. No: Fever Contributing factors: No: Recently seen: Not recently seen Review of Systems Constitutional: denies: Fever GI: denies: Abdominal Pain : reports: Dysuria, Frequency Musculoskeletal: denies: Back pain PD PAST MEDICAL HISTORY - Past Medical History Cardiovascular: None Respiratory: None Neuro: None Endocrine/Autoimmune: None, Other GI: Cholelithiasis : None Psych: None Musculoskeletal: None Derm: Other - Past Surgical History Past Surgical History: Yes General: 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, Bowel surgery /PAN DUMPER: section, 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 - Present Medications Home Medications: Ambulatory Orders Medication Instructions Recorded Confirmed Albuterol Sulfate [Proair Hfa 2 puffs INH Q4H PRN 07/08/19 07/08/19 Inhaler] Dicyclomine [Bentyl] 10 mg PO QID PRN #10 capsule 07/08/19 Meloxicam 15 mg PO DAILY 07/08/19 07/08/19 Ondansetron HCl [Zofran] 4 mg PO Q6H PRN #10 tablet 07/08/19 Nitrofurantoin Monohyd/M-Cryst 100 mg PO BID #9 capsule 02/23/20 [Macrobid 100 mg Capsule] Phenazopyridine HCl [Pyridium] 200 mg PO TID PRN #6 tablet 02/23/20 - Allergies Allergies/Adverse Reactions: Allergies Allergy/AdvReac Type Severity Reaction Status Date / Time codeine AdvReac Intermediate Nausea Verified 02/23/20 19:08 - Social History Does the pt smoke?: No Smoking Status: Never smoker Does the pt drink ETOH?: No Does the pt have substance abuse?: No - Immunizations Immunizations are current?: Yes - POLST Patient has POLST: No POLST Status: Full Code PD ED PE NORMAL - Vitals Vital signs reviewed: Yes - General General: Alert and oriented X 3, No acute distress, Well developed/nourished - Abdomen Abdomen: Soft, Non tender - Back Back: No CVA TTP Results - Vitals Vitals: Vital Signs - 24 hr 02/23/20 02/23/20 19:08 20:21 Temperature 36.7 C 37.1 C Heart Rate 70 67 Respiratory 18 19 Rate Blood Pressure 145/85 H 127/91 H O2 Saturation 98 100 Oxygen O2 Source Room air - Labs Labs: Laboratory Tests 02/23/20 19:30 Urine Color YELLOW Urine Clarity CLOUDY Urine pH 5.5 Ur Specific Craig >=1.030 H Urine Protein NEGATIVE Urine Glucose (UA) NEGATIVE Urine Ketones NEGATIVE Urine Occult Blood MODERATE H Urine Nitrite NEGATIVE Urine Bilirubin NEGATIVE Urine Urobilinogen 0.2 (NORMAL) Ur Leukocyte Esterase SMALL H Urine RBC 11-25 H Urine WBC 11-25 H Ur Squamous Epith Cells MOD Squamous H Urine Bacteria Few Urine Mucus Moderate Strands Ur Microscopic Review INDICATED Urine Culture Comments NOT INDICATED PD MEDICAL DECISION MAKING - ED course Complexity details: reviewed results, considered differential, d/w patient Departure - Departure Disposition: 01 Home, Self Care Clinical Impression: Urinary tract infection Qualifiers: Urinary tract infection type: acute cystitis Hematuria presence: with hematuria Qualified Code(s): N30.01 - Acute cystitis with hematuria Condition: Good Instructions: ED UTI Cystitis Female Follow-Up: JAY AYALA DO [Primary Care Provider] - (3-5 days if symptoms have not i mproved/resolved) Prescriptions: Nitrofurantoin Monohyd/M-Cryst [Macrobid 100 mg Capsule] 100 mg PO BID #9 capsule Phenazopyridine HCl [Pyridium] 200 mg PO TID PRN #6 tablet PRN Reason: dysuria Discharge Date/Time: 02/23/20 20:22
[2020-02-23 19:43] LABS: BILIRUBIN,URINE NEGATIVE (NEGATIVE); GLUCOSE, URINE (UA) NEGATIVE (NEGATIVE); KETONES,URINE (UA) NEGATIVE (NEGATIVE); LEUKOCYTE ESTERASE, URINE SMALL (NEGATIVE); NITRITE,URINE NEGATIVE (NEGATIVE); OCCULT BLOOD,URINE MODERATE (NEGATIVE); PH,URINE 5.5 PH (5.0-7.5); PROTEIN,URINE NEGATIVE (NEGATIVE); UROBILINOGEN,URINE 0.2 (NORMAL) E.U./dL (NORMAL)
[2020-02-23 19:54] LABS: BACTERIA,URINE Few /HPF (None Seen); CLARITY,URINE CLOUDY (CLEAR); SQUAMOUS EPITHELIAL CELL,UR MOD Squamous (<= Few)
[2020-02-23 19:55] LABS: MUCUS,URINE Moderate Strands
[2020-02-23] MEDS ORDERED: PHENAZOPYRIDINE 100 MG TABLET PO STA (20:07)
[2020-02-23] MEDS ORDERED: NITROFURANTOIN MACRO 100 MG CAPSULE PO STA (20:07)
[2020-02-23 20:21] VITALS: BP 127/91
== END 2020-02-23 20:22 | disposition home or self-care (01) ==
LOC: ED 19:04
DX: N30.01 Acute cystitis with hematuria (principal)
CPT/HCPCS: 81001; 99283; A9270; 81003; 87086

== ENCOUNTER 2021-10-09 20:54 | Emergency (ER) | payer OTHER ==
--- OUTSIDE RECORDS SUMMARY | 2021-10-09 21:24 | EXTERNAL MEDICAL SUMMARY RPT | Continuity of Care Document ---
:1975 Author Organization [facility] Address [address] [place] [address] Phone Care Team Providers Name Role Phone Rivas Unavailable Unavailable Allergies No information. Encounters No information. Medications No information. Problems date description facility [id number] Tension-type headache, unspecified, not intractable [facility] [id number] Cramp and spasm [facility] Results No information.
[2021-10-09 22:01] LABS: BASOPHILS % (AUTO) 0.4 %; EOSINOPHILS % (AUTO) 0.4 %; HCT - HEMATOCRIT 48.2 % (37.0-47.0); HGB - HEMOGLOBIN 16.4 g/dL (12.0-16.0); LYMPHOCYTES # (AUTO) 1.8 10^3/uL (1.5-3.5); LYMPHOCYTES % (AUTO) 21.8 %; MEAN CORPUSCULAR HEMOGLOBIN 32.1 pg (27.0-31.0); MEAN CORPUSCULAR VOLUME 94.3 fL (81.0-99.0); MEAN PLATELET VOLUME 8.8 fL (7.9-10.8); MONOCYTES # (AUTO) 0.6 10^3/uL (0.0-1.0); MONOCYTES % (AUTO) 7.4 %; NEUTROPHILS # (AUTO) 5.6 10^3/uL (1.5-6.6); NEUTROPHILS % (AUTO) 69.8 %; PLT - PLATELET COUNT 271 10^3/uL (130-450); RED BLOOD COUNT 5.11 10^6/uL (4.20-5.40); RED CELL DISTRIBUTION WIDTH 12.5 % (12.0-15.0)
[2021-10-09 22:11] LABS: ALBUMIN 4.7 g/dL (3.2-5.5); ALBUMIN/GLOBULIN RATIO 1.3 (1.0-2.2); BILIRUBIN,TOTAL 0.7 mg/dL (0.2-1.0); CALCIUM 9.4 mg/dL (8.5-10.3); CREATININE 0.5 mg/dL (0.4-1.0); POTASSIUM 3.8 mmol/L (3.5-5.0); TOTAL PROTEIN 8.3 g/dL (6.7-8.2)
[2021-10-09 23:08] LABS: BILIRUBIN,URINE NEGATIVE (NEGATIVE); GLUCOSE, URINE (UA) NEGATIVE (NEGATIVE); KETONES,URINE (UA) >=80 mg/dL (NEGATIVE); LEUKOCYTE ESTERASE, URINE NEGATIVE (NEGATIVE); NITRITE,URINE NEGATIVE (NEGATIVE); OCCULT BLOOD,URINE LARGE (NEGATIVE); PROTEIN,URINE NEGATIVE (NEGATIVE); UROBILINOGEN,URINE 0.2 (NORMAL) E.U./dL (NORMAL)
[2021-10-09 23:13] LABS: CLARITY,URINE CLEAR (CLEAR); HCG UR QUAL NEGATIVE
[2021-10-09] MEDS ORDERED: SODIUM CHLORIDE 0.9% 1,000 ML IV STA (23:17)
[2021-10-09 23:23] LABS: BACTERIA,URINE Moderate /HPF (None Seen); SQUAMOUS EPITHELIAL CELL,UR MOD Squamous (<= Few); WBC,URINE 0-3 /HPF (0-5)
[2021-10-09 23:24] LABS: MUCUS,URINE Few Strands
[2021-10-09] MEDS ORDERED: KETOROLAC 30 MG/ML VIAL IVP STA (23:28)
[2021-10-09] MEDS ORDERED: ONDANSETRON 4 MG/2 ML VIAL IVP STA (23:28)
[2021-10-09 23:55] LABS: B. PARAPERTUSSIS- RESP PCR PAN NOT DETECTED; B. PERTUSSIS- RESP PCR PANEL NOT DETECTED; C. PNEUMONIAE- RESP PCR PANEL NOT DETECTED; CORONAVIRUS 229E-RESP PCR NOT DETECTED; CORONAVIRUS HKU1-RESP PCR NOT DETECTED; CORONAVIRUS NL63-RESP PCR NOT DETECTED; CORONAVIRUS OC43-RESP PCR NOT DETECTED; HUMAN METAPNEUMOVIRUS NOT DETECTED; INFLUENZA A H3- RESP PCR PANEL DETECTED; INFLUENZA A- RESP PCR PANEL NOT DETECTED; INFLUENZA B - RESP PCR PANEL NOT DETECTED; M. PNEUMONIAE- RESP PCR PANEL NOT DETECTED; PARAINFLUENZA VIRUS 1 NOT DETECTED; PARAINFLUENZA VIRUS 2 NOT DETECTED; PARAINFLUENZA VIRUS 3 NOT DETECTED; PARAINFLUENZA VIRUS 4 NOT DETECTED; RHINOVIRUS/ENTEROVIRUS NOT DETECTED; RSV- RESP PCR PANEL NOT DETECTED; SARS-CoV-2 -RESP PCR PANEL NOT DETECTED
--- NOTE | 2021-10-10 00:02 | XRAY Report ---
PROCEDURE: Chest 1 View X-Ray INDICATIONS: weak TECHNIQUE: One view of the chest was acquired. COMPARISON: 07/08/2019. FINDINGS: Surgical changes and devices: None. Lungs and pleura: No pleural effusions or pneumothorax. Lungs are clear. Mediastinum: Mediastinal contours appear normal. Heart size is normal. Bones and chest wall: No suspicious bony lesions. Overlying soft tissues appear unremarkable. IMPRESSION: 1. No acute cardiopulmonary disease. Reviewed by: Ajith Craven MD on 10/10/2021 12:01 AM PDT Approved by: Ajith Craven MD on 10/10/2021 12:01 AM PDT Station ID: [id number]
--- NOTE | 2021-10-10 00:07 | ED Physician Documentation ---
History of Present Illness - Stated complaint Stated Complaint: BODY PX,NOT EATING OR DRINKING - Chief complaint Chief Complaint: General - History obtained from History obtained from: Patient - Additonal information Additional information: Patient is a 45-year-old female with no significant past medical history presenting for 5-day history of generalized malaise, headache, feeling chills, nausea, Loose stools.She has taken home COVID test and is negative. Her daughter at home has also been sick with more upper respiratory infection symptoms.She feels lightheaded because she has not been eating very much. She denies chest pain, cough, trouble breathing, abdominal pain or vomiting.She has not been taking anything for her symptoms. She denies recent travel. Review of Systems Constitutional: reports: Chills. 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, 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 - Present Medications Home Medications: Ambulatory Orders Medication Instructions Recorded Confirmed Albuterol Sulfate [Proair Hfa 2 puffs INH Q4H PRN 07/08/19 07/08/19 Inhaler] Dicyclomine [Bentyl] 10 mg PO QID PRN #10 capsule 07/08/19 Meloxicam 15 mg PO DAILY 07/08/19 07/08/19 ondansetron HCL [Zofran] 4 mg PO Q6H PRN #10 tablet 07/08/19 Nitrofurantoin Monohyd/M-Cryst 100 mg PO BID #9 capsule 02/23/20 [Macrobid 100 mg Capsule] Phenazopyridine HCl [Pyridium] 200 mg PO TID PRN #6 tablet 02/23/20 Ondansetron Odt [Zofran] 4 mg TL Q6H PRN #10 tablet 10/10/21 - Allergies Allergies/Adverse Reactions: Allergies Allergy/AdvReac Type Severity Reaction Status Date / Time codeine AdvReac Intermediate Nausea Verified 10/09/21 21:03 - Social History Does the pt smoke?: No Smoking Status: Never smoker Does the pt drink ETOH?: No Does the pt have substance abuse?: No - Immunizations Immunizations are current?: Yes - POLST Patient has POLST: No POLST Status: Full Code PD ED PE NORMAL - General General: Alert and oriented X 3, No acute distress, Well developed/nourished - HEENT HEENT: Atraumatic, Moist mucous membranes, Pharynx benign - Neck Neck: Supple, no meningeal sign - Cardiac Cardiac: RRR, No murmur, Strong equal pulses - Respiratory Respiratory: No respiratory distress, Clear bilaterally - Abdomen Abdomen: Normal bowel sounds, Soft, Non tender - Derm Derm: Warm and dry - Extremities Extremities: No edema - Neuro Neuro: Alert and oriented X 3, No motor deficit, Normal speech - Psych Psych: Normal mood Results - Vitals Vitals: Vital Signs - 24 hr 10/09/21 10/09/21 10/10/21 20:58 23:03 00:09 Temperature 36.8 C 37.1 C Heart Rate 88 87 85 Respiratory 17 18 15 Rate Blood Pressure 166/98 H 144/89 H 153/99 H O2 Saturation 96 100 100 Oxygen O2 Source Room air - Labs Labs: Laboratory Tests 10/09/21 10/09/21 10/09/21 21:49 21:49 22:53 WBC 8.0 RBC 5.11 Hgb 16.4 H Hct 48.2 H MCV 94.3 MCH 32.1 H MCHC 34.0 RDW 12.5 Plt Count 271 MPV 8.8 Neut # (Auto) 5.6 Lymph # (Auto) 1.8 Ellsworth # (Auto) 0.6 Eos # (Auto) 0.0 Baso # (Auto) 0.0 Absolute Nucleated RBC 0.00 Nucleated RBC % 0.0 Sodium 139 Potassium 3.8 Chloride 103 Carbon Dioxide 26 Anion Gap 10.0 BUN 17 Creatinine 0.5 Estimated GFR (MDRD) 135 Glucose 109 H Calcium 9.4 Total Bilirubin 0.7 AST 23 ALT 30 Alkaline Phosphatase 103 Total Protein 8.3 H Albumin 4.7 Globulin 3.6 Albumin/Globulin Ratio 1.3 Urine Color YELLOW Urine Clarity CLEAR Urine pH 6.0 Ur Specific Amery >=1.030 H Urine Protein NEGATIVE Urine Glucose (UA) NEGATIVE Urine Ketones >=80 H Urine Occult Blood LARGE H Urine Nitrite NEGATIVE Urine Bilirubin NEGATIVE Urine Urobilinogen 0.2 (NORMAL) Ur Leukocyte Esterase NEGATIVE Urine RBC 6-10 H Urine WBC 0-3 Ur Squamous Epith Cells MOD Squamous H Urine Bacteria Moderate H Urine Mucus Few Strands Ur Microscopic Review INDICATED Urine Culture Comments NOT INDICATED Urine HCG, Qual NEGATIVE Nasal Adenovirus (PCR) Nasal B. parapertussis DNA (PCR) Nasal Coronavir 229E PCR Nasal Coronavir HKU1 PCR Nasal Coronavir NL63 PCR Nasal Coronavir OC43 PCR Nasal Enterovir/Rhinovir PCR Nasal Influenza A H3 PCR Nasal Influenza B PCR Nasal Influenza A PCR Nasal Parainfluen 1 PCR Nasal Parainfluen 2 PCR Nasal Parainfluen 3 PCR Nasal Parainfluen 4 PCR Nasal RSV (PCR) Nasal B.pertussis DNA PCR Nasal C.pneumoniae (PCR) Laureano Human Metapneumo PCR Nasal M.pneumoniae (PCR) Nasal SARS-CoV-2 (PCR) 10/09/21 22:53 WBC RBC Hgb Hct MCV MCH MCHC RDW Plt Count MPV Neut # (Auto) Lymph # (Auto) Ellsworth # (Auto) Eos # (Auto) Baso # (Auto) Absolute Nucleated RBC Nucleated RBC % Sodium Potassium Chloride Carbon Dioxide Anion Gap BUN Creatinine Estimated GFR (MDRD) Glucose Calcium Total Bilirubin AST ALT Alkaline Phosphatase Total Protein Albumin Globulin Albumin/Globulin Ratio Urine Color Urine Clarity Urine pH Ur Specific Amery Urine Protein Urine Glucose (UA) Urine Ketones Urine Occult Blood Urine Nitrite Urine Bilirubin Urine Urobilinogen Ur Leukocyte Esterase Urine RBC Urine WBC Ur Squamous Epith Cells Urine Bacteria Urine Mucus Ur Microscopic Review Urine Culture Comments Urine HCG, Qual Nasal Adenovirus (PCR) NOT DETECTED Nasal B. parapertussis DNA (PCR) NOT DETECTED Nasal Coronavir 229E PCR NOT DETECTED Nasal Coronavir HKU1 PCR NOT DETECTED Nasal Coronavir NL63 PCR NOT DETECTED Nasal Coronavir OC43 PCR NOT DETECTED Nasal Enterovir/Rhinovir PCR NOT DETECTED Nasal Influenza A H3 PCR DETECTED A Nasal Influenza B PCR NOT DETECTED Nasal Influenza A PCR NOT DETECTED Nasal Parainfluen 1 PCR NOT DETECTED Nasal Parainfluen 2 PCR NOT DETECTED Nasal Parainfluen 3 PCR NOT DETECTED Nasal Parainfluen 4 PCR NOT DETECTED Nasal RSV (PCR) NOT DETECTED Nasal B.pertussis DNA PCR NOT DETECTED Nasal C.pneumoniae (PCR) NOT DETECTED Laureano Human Metapneumo PCR NOT DETECTED Nasal M.pneumoniae (PCR) NOT DETECTED Nasal SARS-CoV-2 (PCR) NOT DETECTED PD MEDICAL DECISION MAKING - ED course Complexity details: reviewed results, re-evaluated patient, d/w patient ED course: Patient presenting for evaluation of generalized weakness. She does report having mild headache but overall her exam is reassuring. No signs of meningitis or intracranial process. She does not appear distressed and has normal vital signs. Labs are unremarkable. Patient has no abdominal tenderness and no episodes of diarrhea while here. She is tolerating p.o.No UTI symptoms. Respiratory panel is positive for influenza A. Patient is outside of window for Tamiflu. Discussed continuing with supportive care as well as strict return precautions. Chest x-ray is clear. Departure - Departure Disposition: 01 Home, Self Care Clinical Impression: Influenza A Condition: Stable Instructions: ED Flu Prescriptions: Ondansetron Odt [Zofran] 4 mg TL Q6H PRN #10 tablet PRN Reason: Nausea / Vomiting Comments: Essence - You were evaluated for weakness, nausea, headache. You were found to have influenza A. Your symptoms could last at least a week. Please use Tylenol for pain or fever. I have sent a prescription for nausea medication to [facility] in [place]. Please make sure to stay hydrated. Your chest x-ray was clear and your labs do not show any significant abnormalities. There was a small amount of blood in your urine. However you do not have symptoms of a urinary tract infection. Please follow-up with your primary care doctor to make sure that this is resolving.Please return to the emergency department with any concerning symptoms such as increased shortness of breath. Discharge Date/Time: 10/10/21 01:04
[2021-10-10 00:11] VITALS: BP 153/99
== END 2021-10-10 01:04 | disposition home or self-care (01) ==
LOC: ED 20:54
DX: J10.1 Influenza due to other identified influenza virus with other respiratory manifestations (principal)
CPT/HCPCS: 36415; 80053; 81001; 81003; 81025; 85025; 87086; 87633; 96374; 96375; 99283